=== PATIENT | male | born 1940 | race Caucasian/White ===

== ENCOUNTER → 2020-05-17 | Outpatient (CLI) | payer MEDICARE, BC ==
--- NOTE | 2020-05-17 13:37 | Diagnostic Imaging Report ---
INDICATION: Left hydrocele. TECHNIQUE: Real-time grayscale sonographic imaging and color vascular evaluation of the scrotum. CORRELATION STUDY: None FINDINGS: RIGHT TESTICLE: 4.1 x 2.1 x 2.9 cm. LEFT TESTICLE: 4.0 x 2.2 x 3.3 cm. The testicles are in normal location and demonstrate homogeneous echotexture. There is vascular flow to the testicles. Right epididymis unremarkable. Left epididymis not well visualized, somewhat obscured. There is presence of a rather large, somewhat complex multiseptated and loculated left sided hydrocele. This is particularly located superior to the left testicle. Largest a more discrete pocket measures approximately 6.1 x 5.5 x 4.0 cm. IMPRESSION: 1. Rather sizable, large, complex, multiseptated left sided hydrocele. Dictated by: Dictated on workstation # [id number]
== END ==
LOC: RAD 12:40
PROVIDERS: ATTEND Urology
DX: N43.3 Hydrocele, unspecified (principal)
CPT/HCPCS: 76870

== ENCOUNTER 2020-06-19 05:29 | Outpatient (RCR) | payer MEDICARE, BC ==
[~2020-06-19] VITALS: Ht 172.7 cm; Wt 90.0 kg
[~2020-06-19 05:29] MED LIST: ASPI-999 PO; CARV6.252 PO; CYAN100T37 PO; LORA10TA7 PO; LOSA25TA41 PO; OMEP20CA18 PO; PRAV80TA2 PO; TRAM50TA3 PO; VITA400T9 PO
== END 2020-06-19 10:22 | disposition home or self-care (01) ==
LOC: PREOP 05:29
PROVIDERS: ATTEND Urology
DX: Z01.812 Encounter for preprocedural laboratory examination (principal); N50.89 Other specified disorders of the male genital organs; N43.3 Hydrocele, unspecified; Z20.822 Contact with and (suspected) exposure to COVID-19
CPT/HCPCS: 87635

== ENCOUNTER 2020-06-21 06:48 | Day surgery (SDC) | payer MEDICARE, BC ==
[~2020-06-21] VITALS: Ht 172 cm; Wt 90.0 kg
[2020-06-21] VITALS (10 sets, daily range): BP systolic 129–153; BP diastolic 75–90
[2020-06-21] MEDS ORDERED: ceFAZolin INJECTION 1,000 MG in WATER (STERILE) FOR INJECTION 10 ML IV ONE (07:00)
[2020-06-21] MEDS ORDERED: CATHETER FLUSH 10 ML SYR IV PRN (07:00)
[2020-06-21] MEDS ORDERED: LACTATED RINGERS 1,000 ML IV PRN (07:00)
--- NOTE | 2020-06-21 07:19 | Progress Note-Pre Operative ---
Pre-Operative Progress Note H&P Reviewed The H&P was reviewed, patient examined and no changes noted. Date Seen by Provider: Jun 21, 2020 Time Seen by Provider: 07:18 Date H&P Reviewed: Jun 21, 2020 Time H&P Reviewed: 07:18 Pre-Operative Diagnosis: LT LARGE HYDROCELE AND CHRONIC ORCHALGIA AMIE ELENA MD Jun 21, 2020 07:19
--- NOTE | 2020-06-21 07:24 | Progress Note-Post Operative ---
Post-Operative Progess Note Surgeon (s)/Concierge Receptionist (s) Surgeon AMIE ELENA MD Concierge Receptionist: NONE Pre-Operative Diagnosis LT LARGE HYDROCELE AND CHRONIC ORCHALGIA Post-Operative Diagnosis SAME Procedure & Operative Findings Date of Procedure 06/21/20 Procedure Performed/Findings LT ORCHIECTOMY Anesthesia Type GENERAL Estimated Blood Loss Estimated blood loss (mL): LESS THAN 50 CC Specimens/Packing Specimens Removed LT TESTIS, EPIDIDYMIS, AND SPERMATIC CORD Packin/4# RACHAEL DRAIN AMIE ELENA MD Jun 21, 2020 07:24
--- NOTE | 2020-06-21 07:26 | Discharge Inst-Urology ---
Discharge Inst-Urology Reconcile Patient Problems Problems Reviewed?: Yes Final Diagnosis LT LARGE HYDROCELE AND CHRONIC ORCHALGIA Patient Instructions/Follow Up Plan/Assessment/Instructions Please make appointment to been seen in office in 2 weeks. Rest and scrotal support till then Come to office tomorrow 9am to DC drain then start showers, no bath Keep bowels soft and moving Ice to scrotum in RR and at home for 6 hours and then PRN Increase oral fluids for 48 hours and then as needed. Diet and Activity as tolerated. If questions or concerns contact your physician Or seek help at emergency department. AMIE ELENA MD Jun 21, 2020 07:26
[2020-06-21] MEDS ORDERED: LIDOCAINE PF 2% 5 ML (XYLOCAINE) VIAL ONE (07:44)
[2020-06-21] MEDS ORDERED: SEVOFLURANE (ULTANE) 15 ML INHAL SOLN ONE ×4 (07:44→08:48)
[2020-06-21] MEDS ORDERED: proPOfol 200 MG/20 ML (DIPRIVAN) VIAL IV ONE (07:44)
[2020-06-21] MEDS ORDERED: fentaNYL INJECTION 100 MCG/2 ML AMP ONE (07:45)
[2020-06-21] MEDS ORDERED: MIDAZOLAM 2 MG/2 ML (VERSED) VIAL ONE (07:45)
[2020-06-21] MEDS ORDERED: ONDANSETRON 4 MG/2 ML (SDV) Z0FRAN ONE (07:46)
[2020-06-21] MEDS ORDERED: HYDROmorphone 2 MG/ML VIAL (DILAUDID) IV ONE (09:00)
[2020-06-21] MEDS ORDERED: ONDANSETRON 4 MG/2 ML (SDV) Z0FRAN IVP PRN (09:00)
[2020-06-21] MEDS ORDERED: CEPH500T PO (09:46)
[2020-06-21] MEDS ORDERED: TRM50T PO (09:46)
--- NOTE | 2020-06-21 10:09 | Anesthesia-General Post-Op ---
General Patient Condition Mental Status/LOC: Same as Preop Cardiovascular: Satisfactory Nausea/Vomiting: Absent Respiratory: Satisfactory Pain: Controlled Complications: Absent Post Op Complications Complications None Follow Up Care/Instructions Patient Instructions None needed. Anesthesia/Patient Condition Patient Condition Patient is doing well, no complaints, stable vital signs, no apparent adverse anesthesia problems. No complications reported per nursing. D/C home per [facility] Criteria: Yes NIEVES ELLER CRNA Jun 21, 2020 10:09
--- NOTE | 2020-06-21 13:36 | OPERATIVE REPORT ---
DATE OF SERVICE: 06/21/2020 PREOPERATIVE DIAGNOSES: Left hydrocele with chronic orchialgia. POSTOPERATIVE DIAGNOSIS: Left hydrocele with chronic orchialgia. OPERATION PERFORMED: Left orchiectomy. SURGEON: Amie Elena MD ANESTHESIA: General. COMPLICATIONS: None. DESCRIPTION OF PROCEDURE: Under satisfactory general anesthesia, the patient in supine position, abdomen, genitalia and thigh were prepped and draped in the usual sterile fashion. An incision was made in the median raphe, carried through the left scrotal compartment. Bleeders were cauterized as the dissection was proceeding. The testicle and spermatic cord were delivered after evacuating large amount of fluid. It was noted that the testicle showed changes of orchitis, pretty much adhesions were seen as well as a left varicose veins and agreed with the patient, I decided to go ahead and do an orchiectomy, so that the pain and orchitis do not come back. So, I dissected the spermatic cord, clamped it, cut it and ligated it in 2 places with 0 chromic catgut. I got this vas and ligated it with 3-0 chromic catgut and dissection was carried toward the varicose veins were and there were also secured with 3-0 chromic catgut. There was no bleeding anymore. No varicosities. The specimen was sent for pathology. The scrotal compartment was drained with the 0.25% of an inch Haider drain brought through a separate stab wound at the bottom of the scrotum secured in position with a 3-0 chromic catgut suture. Closure was performed in 2 layers, the dartos with running 3-0 chromic catgut and the skin was interrupted 4-0 Vicryl. Telfa, fluffs and scrotal support was applied. Needle, sponge, instrument counts were correct x2. ESTIMATED BLOOD LOSS: Less than 50 mL, none of which was replaced. The patient tolerated the procedure and anesthesia well and was sent to recovery room in stable condition. Job ID: [id number] DocumentID: [id number] Dictated Date: 06/21/2020 09:03:42 Wood Drill Operator Date: 06/21/2020 13:35:29 Dictated By: AMIE ELENA MD [facility]
== END 2020-06-21 10:45 | disposition home or self-care (01) ==
LOC: SDC 06:48
PROVIDERS: ATTEND Urology
DX: N43.3 Hydrocele, unspecified (principal); N50.0 Atrophy of testis; I10 Essential (primary) hypertension; I25.10 Atherosclerotic heart disease of native coronary artery without angina pectoris; K21.9 Gastro-esophageal reflux disease without esophagitis; Z79.899 Other long term (current) drug therapy; Z95.5 Presence of coronary angioplasty implant and graft
CPT/HCPCS: 87081; 88302; 88305